=== PATIENT | female | born 1965 | race Caucasian/White ===

== ENCOUNTER 2017-02-10 22:25 | Emergency (ER) | payer SELFPAY ==
[~2017-02-10] VITALS: Ht 165.1 cm; Wt 56.7 kg
[~2017-02-10 22:25] MED LIST: DOSTINEX; NORCO 5-325 TA1 EACH ORAL; ROBAXIN-750750 MG PO
--- NOTE | 2017-02-11 00:34 | Emergency Room Report ---
History of Present Illness General Chief Complaint: Behavioral Complaint Source: Patient Present Illness HPI Patient sent in by therapist. She felt the patient was agitated and had poor reasoning ability. Denied SI or HI. There was some lability and anger at "friend". Last weekend patient had some SI but did not have plan. Problems with 12 yo son and divorce. Not sleeping well or eating well. Exercise fanatic and not exercising due to neck and back issues. Recent evaluation (Sunday) at [facility] regarding neck. Had "normal" blood work including thyroid function. In process of starting PT and treatment by pain process improvement specialist. Picked up Melatonin. Therapist considering bipolar disorder. Worried about manic phase. Patient and friend concerned about possible addictive medications (and all medications). No fevers, NVD. Some issues with possible eating disorder, but denies binging, purging and anorexia nervosa. Possible minimal weight loss. Poor apatite. Allergies: Coded Allergies: PENICILLINS (Verified Allergy, Severe, 04/26/13) Patient History Past Medical History: see triage record Social History: Reports: smoking, Denies: alcohol use, drug use Social History Narrative with friend Last Menstrual Period: January Reviewed Nursing Documentation: PMH: Agreed, PSxH: Agreed Review of Systems All Other Systems: negative except mentioned in HPI Physical Exam Vital Signs Date Time Temp Pulse Resp B/P Pulse Ox O2 Delivery O2 Flow Rate FiO2 02/10/17 22:46 97.9 101 16 137/92 100 Room Air Sp02 EP Interpretation: reviewed, normal General Appearance: well appearing, no apparent distress, GCS 15 Head: normocephalic Eyes: bilateral eye PERRL, bilateral eye normal inspection ENT: moist mucus membranes Neck: supple Respiratory: lungs clear, normal breath sounds Cardiovascular #1: regular rate, rhythm Cardiovascular #2: 2+ radial (R) Gastrointestinal: normal inspection, normal bowel sounds, non tender, no mass, non-distended Musculoskeletal: back normal, gait/station normal, normal range of motion Neurologic: alert, oriented x3, fountain manager III-XII nml as tested, motor strength/tone normal, DTRs symmetric, sensory intact, cerebellar normal, normal gait, speech normal Psychiatric: no suicidal/homicidal ideation, no delusions, anxious - slightly pressured and allegedly somewhat labile (not observed) Suicide Risk Assessment: Suicidal Ideation: No Had intent to initiate attempt: No Pt's plan for suicide attempt: No Has means to complete attempt: No Skin: normal inspection, warm/dry Medical Decision Making Diagnostic Impression: Primary Impression: Anxiety Additional Impression: Depression Qualified Codes: F32.9 - Major depressive disorder, single episode, unspecified ER Course Patient presents for psychiatric evaluation at recommendation of therapist. DDx : depression, bipolar disorder, insomnia amongst others. No SI or HI at this time. Recent blood work reported as normal excludes electrolyte abnormalities. I suggested ativan which was summarily refused. Atarax accepted. Discussed with therapist. She feels patient with significant sequelae of depression, but agrees patient not danger to self or others at this time. She would like patient to be medicated but understands patient is refusing. Patient states atrax not help. Discussed othermeds which could take. Refused. I recommended that if no relief to present to psychiatric facility for re- evaluation. Patient stable for outpatient observation and treatment. Patient discharged with friend. Last Vital Signs Date Time Temp Pulse Resp B/P Pulse Ox O2 Delivery O2 Flow Rate FiO2 02/11/17 00:52 97.9 80 16 137/92 100 Room Air Status: improved Disposition: HOME, SELF-CARE Condition: Stable Scripts Hydroxyzine Pamoate (VISTARIL) 25 Mg Capsule 25 MG PO Q8HR Y for anxiety and insomnia, #10 CAP Prov: Dante Beauchamp M.D. 02/11/17 Referrals: NON PHYSICIAN (PCP) Dante Beauchamp M.D. February 11, 2017 00:34
[2017-02-11] MEDS ORDERED: VISTARIL25 M1 PO (00:37)
[2017-02-11 00:51] VITALS: BP 128/92
[2017-02-11 00:52] VITALS: BP 137/92
== END 2017-02-11 00:54 | disposition home or self-care (01) ==
LOC: EMR 23:15
DX: F41.9 Anxiety disorder, unspecified (principal); F32.9 Major depressive disorder, single episode, unspecified; F17.200 Nicotine dependence, unspecified, uncomplicated; Z88.0 Allergy status to penicillin
CPT/HCPCS: 99283